=== PATIENT | male | born 1995 | race African-American/Black ===

== ENCOUNTER 2016-12-04 16:54 | Emergency (ER) | payer MEDICAID, OTHER ==
[~2016-12-04] VITALS: Ht 177.8 cm; Wt 68.0 kg
[2016-12-04 16:57] VITALS: BP 126/67; PULSE 100; RESP 20; TEMP 101.1; O2SAT 96
--- NOTE | 2016-12-04 18:31 | PD ---
HPI Chief Complaint: Cold / Flu Symptoms Time Seen by Provider: 18:31 Travel History International Travel<30 days: No Contact w/Intl Traveler<30days: No Traveled to known affect area: No History of Present Illness HPI 21-year-old male presents to the emergency Department with complaint of nasal congestion, cough, scratchy throat, facial pressure 3 days. Reports feeling feverish but cannot report MAXIMUM TEMPERATURE. Says he was told he had a fever upon arrival to the ER. Denies nausea, vomiting, abdominal pain. Denies chest pain or shortness of breath. Has tried [id number] cough and cold medications with no relief of symptoms. Has not taken any medications or tried any treatments today. Reports good by mouth fluid intake. Reports decreased appetite. No one else with similar symptoms. Denies significant past medical history. No known allergies. No other Modifying factors or associated signs and symptoms. PFSH Past Medical History Medical History: Denies Significant Hx Past Surgical History Surgical History: No Previous Surgery Social History Alcohol Use: Yes (occasional) Tobacco Use: No Substance Use: No Allergies-Medications (Allergen,Severity, Reaction): Coded Allergies: No Known Allergies (Unverified , 12/04/16) Reported Meds & Prescriptions Reported Meds & Active Scripts Active Tessalon Perles (Benzonatate) 100 Mg Cap 100 Mg PO TID PRN Nasonex Nasal [place] (Mometasone Furoate) 50 Mcg/Act Naspr 2 [place] EACH NARE DAILY PRN Ibuprofen 800 Mg Tab 800 Mg PO Q6HR PRN Azithromycin 500 Mg Tab 500 Mg PO DAILY Review of Systems Except as stated in HPI: all other systems reviewed are Neg Physical Exam Narrative GENERAL: Well-nourished, well-developed patient, in no acute distress; febrile, nontoxic-appearing SKIN: Warm and dry. No rash. HEAD: Atraumatic. Normocephalic. Frontal and maxillary sinus tenderness on palpation. EYES: Pupils equal and round at 3 mm with brisk reaction. No scleral icterus. No injection or drainage. PERRLA. ENT: Mucosa pink and moist. No erythema or exudates. No uvular edema. No uvular , palatal, or tonsillar deviation. Airway patent. EARS: Bilateral pinnae and external canals appear within normal limits. Bilateral tympanic membranes without erythema, dullness or perforation. NECK: Trachea midline. No lymphadenopathy. CARDIOVASCULAR: Regular rate and rhythm. No murmur appreciated. RESPIRATORY: No accessory muscle use. Clear to auscultation. Breath sounds equal bilaterally. GASTROINTESTINAL: Abdomen soft, non-tender, nondistended. Hepatic and splenic margins not palpable. Bowel sounds are active 4 quadrants. MUSCULOSKELETAL: No obvious deformities. No clubbing. No cyanosis. No edema. NEUROLOGICAL: Awake and alert. Oriented 3. No obvious cranial nerve deficits. Motor grossly within normal limits. Normal speech. Moves all extremities. 5/5 strength to all extremities. PSYCHIATRIC: Appropriate mood and affect; insight and judgment normal. Data Data Last Documented VS Vital Signs Date Time Temp Pulse Resp B/P Pulse Ox O2 Delivery O2 Flow Rate FiO2 12/04/16 16:57 101.1 100 20 126/67 96 Room Air Orders Influenzae A/B Antigen (12/04/16 18:31) Ibuprofen (Motrin) (12/04/16 19:15) MDM Medical Decision Making Medical Screen Exam Complete: Yes Emergency Medical Condition: Yes Medical Record Reviewed: Yes Differential Diagnosis Influenza, sinusitis, pneumonia, upper respiratory infection Narrative Course 21-year-old male with cold/flu symptoms 3 days. Febrile in the ER with MAXIMUM TEMPERATURE of 101.1. Ibuprofen administered. Patient is nontoxic- appearing. Lungs are clear and equal throughout patient denies shortness of breath or chest pain. Reports scratchy throat but denies sore throat. Influenza negative. I will treat the patient with antibiotics for sinusitis secondary to fever, facial pressure, sinus tenderness. Azithromycin, Nasonex nasal spray, Tessalon Perles, ibuprofen prescribed for home. Patient is medically cleared and stable for discharge. Discussed reasons to return to the emergency department. Instructed patient to follow up with primary care provider. Patient agrees with treatment plan. The patients vital signs are stable and the patient is stable for outpatient follow-up and treatment. Patient discharged home, stable and in no acute distress. Diagnosis Primary Impression: Sinusitis Qualified Code: J01.90 - Acute sinusitis, recurrence not specified, unspecified location Referrals: Primary Care Physician Patient Instructions: General Instructions, Sinusitis (ED) Departure Forms: School Release, Return to School Date: Dec 06, 2016 Tests/Procedures, Work Release Enter return to work date: Dec 06, 2016 Additional Instructions: Antibiotics as prescribed and completed a course Ibuprofen or Tylenol as directed and as needed to reduce fever/pain The counter antihistamines or decongestants as directed and as needed for symptom management Get plenty of sleep/rest Drink plenty of fluids to prevent dehydration [place] diet to encourage nutrition such as crackers, fruit, applesauce, toast, soup etc. Use an air humidifier/turn off ceiling fans Follow-up with your primary care provider within 1 day Return immediately to the emergency department with worsening of symptoms Med/Other Pt SpecificInfo: Prescription(s) given Scripts Benzonatate (Tessalon Perles)100 Mg [id number] Mg PO TID PRN (COUGH) #20 CAP Ref 0 Prov:Eula PinkP 12/04/16 Mometasone Nasal [place] (Nasonex Nasal [place])50 Mcg/Act Naspr2 [place] EACH NARE DAILY PRN (NASAL CONGESTION) #1 BOTTLE Ref 0 Prov:Eula Pink 12/04/16 Ibuprofen 800 Mg [id number] Mg PO Q6HR PRN (PAIN) #30 TAB Ref 0 Prov:Eula Pink 12/04/16 Azithromycin 500 Mg [id number] Mg PO DAILY #5 TAB Ref 0 Prov:Eula Pink 12/04/16 Disposition: 01 DISCHARGE HOME Condition: Stable Eula Pink Dec 04, 2016 18:31
[2016-12-04] MEDS ORDERED: IBUP800T23 PO (19:06)
[2016-12-04] MEDS ORDERED: AZIT500T2 PO (19:06)
[2016-12-04] MEDS ORDERED: BENZ100 PO (19:06)
[2016-12-04] MEDS ORDERED: MOME17I EACH NARE (19:06)
[2016-12-04] MEDS ORDERED: IBUPROFEN 800 MG TAB PO ONE (19:15)
== END 2016-12-04 19:39 | disposition home or self-care (01) ==
LOC: NEPB 16:54
DX: J01.90 Acute sinusitis, unspecified (principal)
CPT/HCPCS: 87804; 99283